=== PATIENT | male | born 1995 | race Two or more races ===

== ENCOUNTER 2025-09-18 04:35 | Inpatient (IN) | payer OTHER ==
[~2025-09-18] VITALS: Ht 172.7 cm; Wt 73.5 kg
[2025-09-18] MEDS: IV NS 0.9% 1,000 ML BAG IV ONE (04:48)
[2025-09-18 04:59] LABS: PLATELET COUNT (AUTO) 326 K/uL (150-450); RED BLOOD CELL COUNT(AUTO) 5.45 MIL/uL (4.5-6.0); RED CELL DISTRIBUTION WIDTH 12.8 % (11.5-15.0); WHITE BLOOD COUNT (AUTO) 10.7 K/uL (4.3-11.0)
[2025-09-18 05:13] LABS: CALCIUM, SERUM 7.7 mg/dL (8.5-10.1); CREATININE 1.4 mg/dL (0.6-1.3); SODIUM SERUM 141 mmol/L (136-145); UREA NITROGEN, BLOOD 10 mg/dL (7-18)
[2025-09-18 05:19] LABS: ALCOHOL, BLOOD 286 mg/dL (0-10); ASPARTATE AMINOTRANSFERASE 68 U/L (15-37); TOTAL PROTEIN, SERUM 8.5 g/dL (6.4-8.2)
[2025-09-18] MEDS ORDERED: ONDANSETRON HCL/PF 4 MG/2 ML VIAL ONE ×2 (05:34→07:35)
[2025-09-18] MEDS: ONDANSETRON HCL/PF 4 MG/2 ML VIAL IV ONE (05:36)
[2025-09-18 06:05] LABS: APPEARANCE,URINE CLEAR (CLEAR); BLOOD, URINE 1+ Ery/uL (NEGATIVE); LEUKOCYTE ESTERASE ,URINE NEGATIVE (NEGATIVE); NITRITE, URINE NEGATIVE (NEGATIVE); UGLUCOSE 1+ mg/dL (NEGATIVE)
[2025-09-18 06:10] LABS: ADD URINE CULTURE NO; HYALINE CASTS, URINE Rare /LPF (None Seen); SQUAMOUS EPITHELIAL CELL,UR Rare /HPF (None Seen)
[2025-09-18 06:14] LABS: AMPHETAMINE, URINE NEGATIVE (NEGATIVE); BARBITURATE, URINE NEGATIVE (NEGATIVE); BENZODIAZEPINE, URINE NEGATIVE (NEGATIVE); CANNABINOID, URINE NEGATIVE (NEGATIVE); OPIATE, URINE NEGATIVE (NEGATIVE)
[2025-09-18 06:17] LABS: COCCAINE, URINE POSITIVE (NEGATIVE)
[2025-09-18] MEDS: ONDANSETRON HCL/PF - ER 4 MG/2 ML VIAL IV ONE (07:38)
[2025-09-18 07:49] LABS: CALCIUM, SERUM 7.2 mg/dL (8.5-10.1); CREATININE 0.9 mg/dL (0.6-1.3); SODIUM SERUM 140.0 mmol/L (136-145); UREA NITROGEN, BLOOD 9.0 mg/dL (7-18)
[2025-09-18 11:30] VITALS: BP 135/77; TEMP 97.3; O2SAT 98
[2025-09-18 12:22] VITALS: O2SAT 94
[2025-09-18] MEDS ORDERED: MAGNESIUM HYDROXIDE 30 ML UDC PO PRN (13:00)
[2025-09-18] MEDS: AMOX/CLAVULANATE 875 MG TABLET PO SCH (13:11)
[2025-09-18] MEDS: ONDANSETRON HCL/PF 4 MG/2 ML VIAL IVP PRN (13:11)
[2025-09-18] MEDS: IV LR 1000 ML 1,000 ML IV PRN (13:11)
[2025-09-18 20:00] VITALS: BP 144/81; TEMP 97.9; O2SAT 97
[2025-09-19] VITALS: BP 136/79; TEMP 98.1; O2SAT 98
[2025-09-19 04:00] VITALS: BP 113/65; TEMP 98.1; O2SAT 95
[2025-09-19 06:19] LABS: PLATELET COUNT (AUTO) 234 K/uL (150-450); RED BLOOD CELL COUNT(AUTO) 4.32 MIL/uL (4.5-6.0); RED CELL DISTRIBUTION WIDTH 12.4 % (11.5-15.0); WHITE BLOOD COUNT (AUTO) 13.2 K/uL (4.3-11.0)
[2025-09-19 07:09] LABS: CALCIUM, SERUM 8.1 mg/dL (8.5-10.1); CREATININE 0.8 mg/dL (0.6-1.3); PHOSPHORUS 2.4 mg/dL (2.5-4.9); SODIUM SERUM 139.0 mmol/L (136-145); UREA NITROGEN, BLOOD 9.0 mg/dL (7-18)
[2025-09-19 07:10] LABS: ASPARTATE AMINOTRANSFERASE 40.0 U/L (15-37); TOTAL PROTEIN, SERUM 6.5 g/dL (6.4-8.2)
[2025-09-19 08:00] VITALS: BP 125/70; TEMP 97.9; O2SAT 97
[2025-09-19] MEDS: PANTOPRAZOLE 40 MG TABLET.DR PO SCH (09:12)
[2025-09-19] MEDS: ACETAMINOPHEN 325 MG TABLET PO PRN (09:14)
[2025-09-19] MEDS: PIPERACILLIN /TAZOBACTAM 3.375 G in IV D5W 50 ML IV SCH (13:14)
[2025-09-19] MEDS: K PHOS NEUTRAL 250 MG TABLET PO ONE (15:47)
[2025-09-19 16:00] VITALS: BP 113/60; TEMP 97.9; O2SAT 93
[2025-09-19 20:00] VITALS: BP 123/61; TEMP 98.6; O2SAT 95
[2025-09-20 06:19] LABS: PLATELET COUNT (AUTO) 208 K/uL (150-450); RED BLOOD CELL COUNT(AUTO) 4.23 MIL/uL (4.5-6.0); RED CELL DISTRIBUTION WIDTH 12.4 % (11.5-15.0); WHITE BLOOD COUNT (AUTO) 10.5 K/uL (4.3-11.0)
[2025-09-20 06:31] LABS: CALCIUM, SERUM 8.2 mg/dL (8.5-10.1); CREATININE 0.9 mg/dL (0.6-1.3); PHOSPHORUS 2.3 mg/dL (2.5-4.9); SODIUM SERUM 141.0 mmol/L (136-145); UREA NITROGEN, BLOOD 9.0 mg/dL (7-18)
[2025-09-20 08:00] VITALS: BP 122/67; TEMP 98.6; O2SAT 95
[2025-09-20] MEDS: POTASSIUM CHLORIDE 20 MEQ TAB.PRT.SR PO ONE (10:44)
[2025-09-20] MEDS ORDERED: K PHOS NEUTRAL 250 MG TABLET PO ONE (17:00)
== END 2025-09-20 13:50 | disposition home or self-care (01) | DRG 917 ==
LOC: ER 04:38 → TELE 11:51 → MED 09-19 06:37
PROVIDERS: ADMIT Nurse Practitioner Family; ATTEND Nurse Practitioner Acute Care
DX: T40.411A Poisoning by fentanyl or fentanyl analogs, accidental (unintentional), initial encounter (principal); J69.0 Pneumonitis due to inhalation of food and vomit; J96.01 Acute respiratory failure with hypoxia; N17.9 Acute kidney failure, unspecified; F10.129 Alcohol abuse with intoxication, unspecified; F19.10 Other psychoactive substance abuse, uncomplicated; T40.5X1A Poisoning by cocaine, accidental (unintentional), initial encounter; Y92.89 Other specified places as the place of occurrence of the external cause; Y90.8 Blood alcohol level of 240 mg/100 ml or more; Z20.822 Contact with and (suspected) exposure to COVID-19; R74.01 Elevation of levels of liver transaminase levels; R73.9 Hyperglycemia, unspecified; E87.6 Hypokalemia
CPT/HCPCS: 36415; 71045-TC; 80048-TC; 80076-TC; 81001; 83735-TC; 84100-TC; 85025-TC; A4223; G0378; G0480; J2405; J2543; J3490; J7030; J7050; J7060; J7120